=== PATIENT | male | born 1980 | race Caucasian/White ===

== ENCOUNTER 2016-12-07 02:59 | Inpatient (IN) | payer MEDICAID, OTHER ==
[~2016-12-07] VITALS: Ht 175.3 cm; Wt 82.1 kg
[~2016-12-07 02:59] MED LIST: AUGM875T27 PO; CLAR1TAB2 PO; IBUP200T45 PO; NICO4GUM8 PO; NO HISTORICAL MEDS; TRAZ100T2 PO; ZOLO50TA PO; no home meds
[2016-12-07 06:44] LABS: MEAN CORPUSCULAR HEMOGLOBIN 30.7 pg (27.0-33.0); MEAN CORPUSCULAR HGB CONC 34.9 g/dl (32.0-36.5); MEAN CORPUSCULAR VOLUME 87.8 fl (80.0-96.0); RED CELL DISTRIBUTION WIDTH 13.2 % (11.5-14.5); WHITE BLOOD COUNT 6.7 K/mm3 (4.0-10.0)
[2016-12-07 06:55] LABS: ANION GAP 14 MEQ/L (8-16); BLOOD UREA NITROGEN 5 MG/DL (7-18); CALCIUM LEVEL 8.5 MG/DL (8.5-10.1); CARBON DIOXIDE LEVEL 25 MEQ/L (21-32); CHLORIDE LEVEL 101 MEQ/L (98-107); CREATININE FOR GFR 1.25 MG/DL (0.70-1.30); GLOMERULAR FILTRATION RATE > 60.0 (>60); GLUCOSE, FASTING 104 MG/DL (70-105); POTASSIUM SERUM 3.1 MEQ/L (3.5-5.1); SODIUM LEVEL 140 MEQ/L (136-145)
[2016-12-07 07:03] LABS: ALBUMIN 3.9 GM/DL (3.2-5.2); ALBUMIN/GLOBULIN RATIO 1.05 (1.00-1.93); ALKALINE PHOSPHATASE 79 U/L (45-117); ALT/SGPT 74 U/L (12-78); AST/SGOT 46 U/L (15-37); BILIRUBIN,DIRECT 0.2 MG/DL (0.0-0.2); BILIRUBIN,TOTAL 0.9 MG/DL (0.2-1.0); TOTAL PROTEIN 7.6 GM/DL (6.4-8.2)
[2016-12-07 13:35] LABS: METHADONE URINE NEGATIVE (NEGATIVE)
[2016-12-07 17:23] VITALS: BP 117/69
--- NOTE | 2016-12-07 17:37 | ECGEPIP ---
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 RBBB POSSIBLE PRIOR INFERIOR INFARCT Electronically Signed On 12-07-2016 17:36:51 EDT by Rajat Mraino
[2016-12-07] MEDS ORDERED: MOM 30ML SUSPENSION UDC PO PRN (19:00)
[2016-12-07] MEDS ORDERED: MAALOX 30 ML SUSP *UDC PO PRN (19:00)
[2016-12-07] MEDS ORDERED: ACETAMINOPHEN TAB 650MG DOSE (2X325MG) PO PRN (19:00)
[2016-12-08 06:25] VITALS: BP 113/62
[2016-12-08] MEDS ORDERED: risperiDONE 2 MG TAB PO ONE (13:30)
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
[2016-12-08 18:00] VITALS: BP 112/65
[2016-12-08] MEDS: traZODone 50 MG TAB PO PRN (21:59)
--- NOTE | 2016-12-09 04:01 | HPE ---
DATE OF ADMISSION: 12/07/2016 HISTORY OF PRESENT ILLNESS: Please refer to psychiatric history and evaluation for further details on this admission. This examination and history is intended for medical issues, which may need treatment, followup or consult on this 36-year-old male. ALLERGIES: None. PRIMARY CARE PROVIDER: He currently has none. SOCIAL HISTORY: He is single. He lives with his girlfriend. He drinks alcohol frequently. He smokes one pack of cigarettes per day. Recreational drug use: He has used heroin, methamphetamine and cocaine. He states that he had been clean for 1-1/2 months until the night of admission when he took them he states in an overdose attempt. PAST MEDICAL HISTORY: Hepatitis C. He has not been treated. PAST SURGICAL HISTORY: 1. Orthopedic surgery. 2. Left hand incision and drainage (I and D) of abscess. HOME MEDICATIONS: None. FAMILY HISTORY: Noncontributory. LABORATORY STUDIES: WBC 6.7, hemoglobin 12.8, hematocrit 36.7, platelets 359. EKG showed sinus rhythm, 87 and complete right bundle branch block. Sodium 140, potassium 3.1, chloride 101, CO2 25, BUN 5, creatinine 1.25, CPK 201, CK-MB 2.0, troponin less than 0.02. TSH was 1.33. Urine was positive for opiates, amphetamine, cocaine. Ethyl alcohol (EtOH) was 0.139. REVIEW OF SYSTEMS: 10-system review was done. He had no complaints. PHYSICAL EXAMINATION: 36-year-old cooperative male in no acute distress. Height 69 inches, weight 78 kg, body mass index (BMI) 25.4. Blood pressure 112/65, pulse 92, respirations 18. Patient is alert and oriented times three. Pupils equal and react to light. Extraocular muscles intact. Cornea and sclerae clear. Conjunctivae were normal. No facial asymmetry. Pharynx, tongue and gums pink and moist. Tongue is midline. Neck is supple without lymphadenopathy. No thyromegaly, no goiter. Chest clear to auscultation without wheeze or retraction. Heart is regular. Abdomen is benign. Bowel sounds positive. Genitourinary/rectal: Not done. Extremities: Show equal strength, full range of motion. No cyanosis, clubbing or edema. Peripheral pulses equal and palpable bilaterally. Skin is warm and dry. IMPRESSION/PLAN: 1. Psychiatric plan per psychiatry. 2. History of hepatitis C. Patient has no primary care provider. Will assist in getting a primary care provider and possible outpatient referral for hepatitis C. 3. Potassium (K) was slightly low at 3.1. Will recheck basic metabolic panel (BMP).
[2016-12-09 06:25] VITALS: BP 119/56
[2016-12-09 06:48] LABS: ANION GAP 7 MEQ/L (8-16); BLOOD UREA NITROGEN 13 MG/DL (7-18); CALCIUM LEVEL 8.8 MG/DL (8.5-10.1); CARBON DIOXIDE LEVEL 30 MEQ/L (21-32); CHLORIDE LEVEL 108 MEQ/L (98-107); CREATININE FOR GFR 0.93 MG/DL (0.70-1.30); GLOMERULAR FILTRATION RATE > 60.0 (>60); GLUCOSE, FASTING 85 MG/DL (70-105); POTASSIUM SERUM 3.6 MEQ/L (3.5-5.1); SODIUM LEVEL 145 MEQ/L (136-145)
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
[2016-12-09 18:00] VITALS: BP 138/75
[2016-12-09] MEDS: traZODone 50 MG TAB PO PRN (22:13)
[2016-12-10 06:11] VITALS: BP 142/60
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
== END 2016-12-10 14:00 | disposition home or self-care (01) | DRG 755 ==
LOC: EDBD 02:59 → M ED 09:14 → M ED INP 15:34 → M PSY 17:23
PROVIDERS: ADMIT Psychiatry & Neurology Child & Adolescent Psychiatry; ATTEND Psychiatry & Neurology Child & Adolescent Psychiatry
DX: F43.25 Adjustment disorder with mixed disturbance of emotions and conduct (principal); F11.20 Opioid dependence, uncomplicated; F14.20 Cocaine dependence, uncomplicated; F10.20 Alcohol dependence, uncomplicated; B18.2 Chronic viral hepatitis C; E87.6 Hypokalemia

== ENCOUNTER → 2017-06-28 | Outpatient (CLI) | payer OTHER ==
[~2017-06-28] MED LIST changes: -AUGM875T27 PO; +AUGM875T28 PO
[2017-06-28 11:38] LABS: ALBUMIN 4.1 GM/DL (3.2-5.2); ALBUMIN/GLOBULIN RATIO 1.21 (1.00-1.93); ALKALINE PHOSPHATASE 77 U/L (45-117); ALT/SGPT 38 U/L (12-78); ANION GAP 10 MEQ/L (8-16); AST/SGOT 19 U/L (15-37); BILIRUBIN,TOTAL 0.7 MG/DL (0.2-1.0); BLOOD UREA NITROGEN 11 MG/DL (7-18); CALCIUM LEVEL 9.3 MG/DL (8.5-10.1); CARBON DIOXIDE LEVEL 30 MEQ/L (21-32); CHLORIDE LEVEL 103 MEQ/L (98-107); CREATININE FOR GFR 1.01 MG/DL (0.70-1.30); GLOMERULAR FILTRATION RATE > 60.0 (>60); GLUCOSE, FASTING 88 MG/DL (70-105); LITHIUM LEVEL 0.68 MEQ/L (0.60-1.20); POTASSIUM SERUM 3.7 MEQ/L (3.5-5.1); SODIUM LEVEL 143 MEQ/L (136-145); TOTAL PROTEIN 7.5 GM/DL (6.4-8.2)
== END ==
LOC: M WUC 09:07
PROVIDERS: ATTEND Psychiatry & Neurology Psychiatry
DX: Z51.81 Encounter for therapeutic drug level monitoring (principal)

== ENCOUNTER → 2017-08-13 | Outpatient (CLI) | payer OTHER ==
[2017-08-13 17:27] LABS: LITHIUM LEVEL 0.9 MEQ/L (0.60-1.20)
== END ==
LOC: M WUC 10:55
PROVIDERS: ATTEND Surgery
DX: Z79.899 Other long term (current) drug therapy (principal)

== ENCOUNTER → 2017-10-22 | Outpatient (REF) | payer OTHER ==
[2017-10-22 14:05] LABS: ALBUMIN 3.9 GM/DL (3.2-5.2); ALKALINE PHOSPHATASE 102 U/L (45-117); ALT/SGPT 30 U/L (12-78); ANION GAP 6 MEQ/L (8-16); AST/SGOT 20 U/L (7-37); BILIRUBIN,TOTAL 0.5 MG/DL (0.2-1.0); BLOOD UREA NITROGEN 12 MG/DL (7-18); CALCIUM LEVEL 9.5 MG/DL (8.5-10.1); CARBON DIOXIDE LEVEL 28 MEQ/L (21-32); CHLORIDE LEVEL 106 MEQ/L (98-107); CREATININE FOR GFR 0.89 MG/DL (0.70-1.30); GLOMERULAR FILTRATION RATE > 60.0 (>60); GLUCOSE, FASTING 110 MG/DL (70-100); POTASSIUM SERUM 4.3 MEQ/L (3.5-5.1); SODIUM LEVEL 140 MEQ/L (136-145); TOTAL PROTEIN 7.8 GM/DL (6.4-8.2); VALPROIC ACID (DEPAKOTE) 47.7 UG/ML (50.0-100.0)
[2017-10-22 14:08] LABS: LITHIUM LEVEL 0.71 MEQ/L (0.60-1.20)
== END ==
LOC: M LAB REF 12:17
DX: Z51.81 Encounter for therapeutic drug level monitoring (principal)